=== PATIENT | male | born 1975 | race Caucasian/White ===

== ENCOUNTER 2021-04-25 13:06 | Observation (INO) | payer OTHER ==
[2021-04-25] MEDS ORDERED: DIPHENHYDRAMINE 25 MG TAB/CAP PO PRN (13:33)
[2021-04-25] MEDS ORDERED: LOPERAMIDE HCL 2 MG CAPSULE PO PRN (13:33)
[2021-04-25] MEDS ORDERED: ONDANSETRON 4 MG/2 ML VIAL IV PRN (13:33)
[2021-04-25] MEDS ORDERED: ACETAMINOPHEN 500 MG TAB PO PRN (13:33)
[2021-04-25] MEDS ORDERED: POLYETHYL GLY 3350 17 GM/DOSE PO PRN (13:54)
[2021-04-25] MEDS ORDERED: CEFOXITIN SODIUM 1 GM/VIAL IVPB SCH (14:00)
--- NOTE | 2021-04-25 16:01 | RAD REPORT ---
EXAM DESCRIPTION: Nabor Nunez (2 Views)04/25/2021 3:54 pm CLINICAL HISTORY: Abdominal pain COMPARISON: None FINDINGS: The lungs appear clear of acute infiltrate. The heart is normal size IMPRESSION: No acute abnormalities displayed
[2021-04-25 16:02] LABS: Absolute Lymphocytes (CBC) 1.1 K/uL (0.7-4.9); Basophils % 0.4 % (0-1.3); Hematocrit 43.2 % (39.6-49.0); Lymphocytes % 12.7 % (15.3-44.8); MPV 9.5 fL (7.6-11.3); RBC Red Blood Cell Count 4.85 M/uL (4.33-5.43)
[2021-04-25 16:03] LABS: Protime INR 1.13
[2021-04-25 16:10] LABS: Albumin 4.3 g/dL (3.4-5.0); Bilirubin Direct 0.1 mg/dL (0-0.2); Bilirubin Total 0.6 mg/dL (0.2-1.0); Magnesium 2.3 mg/dL (1.8-2.4); Phosphorus 3.4 mg/dL (2.5-4.9); Potassium 3.7 mmol/L (3.5-5.1); Protein, Total 7.7 g/dL (6.4-8.2); Thyroid Stimulating Hormone 2.72 uIU/mL (0.360-3.740)
[2021-04-25] MEDS: NACHLORIDE 0.45% 1,000 ML IV SCH (16:10)
[2021-04-25] MEDS: CEFOXITIN/SWI 1gm 1 GM/10 ML SYR IV SCH (16:12)
[2021-04-25] MEDS ORDERED: ENOXAPARIN 40 MG/0.4 ML SQ SCH (17:00)
[2021-04-25] MEDS ORDERED: ACETAMINOPHEN 325 MG TABLET PO PRN (19:00)
[2021-04-25 19:01] LABS: Urine Appearance CLEAR (Clear); Urine Bilirubin NEGATIVE (Negative); Urine Blood NEGATIVE (Negative); Urine Color YELLOW (Yellow); Urine Glucose NEGATIVE (Negative); Urine Protein NEGATIVE (Negative); Urine Specific Gravity 1.015 (1.005-1.030); Urine Urobilinogen 0.2 mg/dL (0.2-1.0)
[2021-04-25 20:07] LABS: Urine Bacteria <20 /HPF (NONE SEEN); Urine RBC NONE SEEN /HPF (NONE SEEN)
[2021-04-25] MEDS: HYDROMORPHONE HCL 1 MG/ML INJ IV PRN (22:40)
[2021-04-26] MEDS: CEFOXITIN/SWI 1gm 1 GM/10 ML SYR IV SCH ×3 (01:11→16:45)
[2021-04-26] MEDS ORDERED: CEFOXITIN/SWI 1gm 1 GM/10 ML SYR ONE ×2 (01:26→12:41)
[2021-04-26 04:25] LABS: Absolute Lymphocytes (CBC) 1.4 K/uL (0.7-4.9); Basophils % 0.5 % (0-1.3); MPV 9.4 fL (7.6-11.3); RBC Red Blood Cell Count 4.64 M/uL (4.33-5.43)
[2021-04-26 04:44] LABS: Magnesium 2.3 mg/dL (1.8-2.4); Potassium 4.1 mmol/L (3.5-5.1)
[2021-04-26] MEDS: HYDROMORPHONE HCL 1 MG/ML INJ IV PRN (06:27)
[2021-04-26] MEDS: NACHLORIDE 0.45% 1,000 ML IV SCH ×2 (06:40→16:45)
--- NOTE | 2021-04-26 10:17 | RAD REPORT ---
EXAM DESCRIPTION: MRICholangiogram04/26/2021 10:03 am CLINICAL HISTORY: Abdominal pain COMPARISON: April 25, 2021 ultrasound TECHNIQUE: Magnetic resonance cholangiogram was performed.3D MIP reconstruction performed FINDINGS: Multiple gallstones. Mild gallbladder wall thickening. The biliary tree is normal caliber without a filling defect. Pancreatic duct is normal caliber IMPRESSION: Cholelithiasis. Thickened gallbladder wall probably indicating cholecystitis
--- NOTE | 2021-04-26 11:08 | RAD REPORT ---
EXAM DESCRIPTION: US - Abdomen Exam Complete - 04/25/2021 10:24 pm CLINICAL HISTORY: PAIN IN ABDOMEN. COMPARISON: None. TECHNIQUE: Real-time ultrasound of the abdomen with Doppler flow imaging was obtained. FINDINGS: Liver: Normal parenchymal echogenicity. Mildly enlarged, measuring 18.5 cm in length. Ther e is no mass or cyst identified in the liver. The main portal vein is patent with normal hepatopedal flow. Gallbladder: Numerous small calcified gallstones. Mild gallbladder wall thickening, measuring up to 0 .6 cm. No focal tenderness over the gallbladder. Bile ducts: No dilatation of the intrahepatic bile ducts. The common bile duct measures 0.8 cm in peter meter at the eugenie hepatis. Right kidney: Poor visualization of the lower pole due to bowel gas. Normal size and configuration, m easuring 11 cm in length. Normal echotexture without focal lesion identified. No hydronephrosis or ca lculi identified. Left kidney: Mildly enlarged, measuring 13.9 cm in length. Normal echotexture without focal lesion id entified. No hydronephrosis or calculi identified. Spleen: Mildly enlarged, measuring 13.9 cm in length. Pancreas: The visualized portions of the pancreas are within normal limits. IMPRESSION: 1. Cholelithiasis with mild gallbladder wall thickening. Correlate for acute cholecyst itis. 2. Mildly prominent common bile duct. Consider correlation with LFTs, and MRCP/ERCP if necessary. 3. Mild hepatosplenomegaly. Nonspecific mild left nephromegaly. Electronically signed by: Samreen Partida MD 04/26/2021 12:10 AM CDT Due to temporary technical issues with the PACS/Fluency reporting system, reports are being signed by the in house radiologists without review as a courtesy to insure prompt reporting. The interpreting radiologist is fully responsible for the content of the report.
[2021-04-26] MEDS ORDERED: Ringers Lactate 1,000 ML IV ONE (11:38)
[2021-04-26] MEDS ORDERED: propofoL 200 MG/20 ML VIAL IV ONE (12:32)
[2021-04-26] MEDS ORDERED: LIDOCAINE 2% MPF 5 ML VIAL ONE (12:33)
[2021-04-26] MEDS ORDERED: MIDAZOLAM HCL 2 MG/2 ML INJ ONE (12:33)
[2021-04-26] MEDS ORDERED: dexAMETHasone 10 MG/ML VIAL ONE (12:33)
[2021-04-26] MEDS ORDERED: FENTANYL CITR 100 MCG/2 ML ONE (12:33)
[2021-04-26] MEDS ORDERED: ONDANSETRON 4 MG/2 ML VIAL ONE (12:36)
--- NOTE | 2021-04-26 12:51 | PREOPCON ---
Date of Consultation: 04/25/2021 Reason: Abdominal pain. History Of Present Illness: The patient is a 46-year-old gentleman comes in with 2-day history of ri ght upper quadrant pain, postprandial in nature. This was started Saturday evening and went to Dr. Storm's office. He was very tender in the right upper quadrant and was admitted for evaluation and work up. He had an ultrasound done which showed cholelithiasis with mild gallbladder wall thickening. Mi ldly prominent common bile duct. Had an MRCP done which did not show any stones in the duct and the caliber of the bile duct was normal on the MRCP and his LFTs are within normal limits. He denies any nausea, vomiting. No diarrhea or constipation. No blood in the stool. No dysuria or hematuria. D oes have some bloating. No belching or heart burn. No sore throat, runny nose, cough, headaches, or dizziness. No chest pain. No fever or chills. Review of Systems: Otherwise unremarkable. Past Medical History: Significant for hypertension. Past Surgical History: Knee surgery and back surgery. Allergies: NONE. Social History: He denies smoking or drinking. Family History: Noncontributory. Physical Examination: Vital signs: Stable. He is afebrile. General: He is awake, alert, and oriented x3. Head and neck: Cranial nerves 2 through 12 grossly within normal limits. No neck masses. No JVD. Throat clear. Neck is supple. Chest: Clear. Heart: S1, S2. Abdomen: Soft, nondistended. Positive right upper quadrant tenderness with rebound. No rigidity or guarding. Extremities: Adequately perfused. Nontender. Neuro: Nonfocal. Diagnostic Data: As per HPI. Assessment: Acute cholecystitis and cholelithiasis. Plan: Admit, n.p.o., IV fluid, IV antibiotic, to the OR for lap choly, possible open. The patient u nderstands the risks, benefits, and alternatives and agrees to procedure. /MODL Voice ID: [id number] Report ID: [id number]
[2021-04-26] MEDS ORDERED: ROCURONIUM 50 MG/5 ML VIAL IV ONE (12:53)
--- NOTE | 2021-04-26 13:17 | P.OP ---
Band Sawmill Operator: Odilia RICHMOND Preoperative diagnosis: Acute Cholecystitis and Cholelithiasis Postoperative diagnosis: Same Primary procedure: Lap Brittney Anesthesia: General Estimated blood loss: min Specimen: GB Findings: as above Complications: None Transferred to: Recovery Room Condition: Good
[2021-04-26] MEDS ORDERED: KETOROLAC 30 MG/ML INJ ONE (13:33)
[2021-04-26] MEDS ORDERED: MEPERIDINE HCL 25 MG/ML SYR ONE (14:08)
[2021-04-26] MEDS ORDERED: LABETALOL 20 MG/4ML SYRINGE IV ONE (14:16)
--- NOTE | 2021-04-26 14:24 | OP ---
Date of Procedure: 04/26/2021 Surgeon: Jono Mitchell MD [place] Dehydrator Operator: BASILIO Clinton Preoperative Diagnosis: Acute cholecystitis with cholelithiasis. Postoperative Diagnosis: Acute cholecystitis with cholelithiasis. Procedure: Laparoscopic cholecystectomy. Estimated Blood Loss: Minimal. Specimen: Gallbladder. Finding: As above. Anesthesia: General. Complications: None. Disposition: The patient tolerated the procedure in stable condition and taken to Recovery in good g eneral condition. Procedure In Detail: The patient was brought to the OR and placed in supine position. General anest hesia begun. The patient was prepped and draped in usual sterile fashion. Marcaine 0.5% was infiltr ated locally. A 15-blade was used to make a 1 cm supraumbilical midline incision. Subcutaneous tiss ue divided. Fascia identified and divided. A #1 Vicryl stay suture was placed. Peritoneal cavity w as entered with a sharp and blunt dissection. A 12 mm trocar was placed into the peritoneal cavity u nder direct vision. Pneumoperitoneum was established. Then, three 5 mm trocars were placed, 1 in th e epigastrium just to the right of midline and 2 in the right subcostal region. Laparoscopy revealed a distended gallbladder, which was aspirated of bile consistent with acute cholecystitis. Fundus re tracted superiorly. Infundibulum was identified and retracted inferolaterally. Cystic duct and cyst ic artery were clearly identified with blunt dissection. Clips were placed. Both structures were di vided. Cautery was used to remove the gallbladder from the liver bed. Bleeding on the liver bed was controlled with cautery. Gallbladder was retrieved through the umbilicus via an EndoCatch bag. Rig ht upper quadrant was irrigated. Effluent was clear. No evidence of bleeding or bile leakage apprec iated. Subsequently, all trocars were removed under direct vision. Stay sutures were tied to each o ther to reapproximate the fascial defect. Wound irrigated. Bleeding controlled with cautery and 3-0 chromic used to approximate subcutaneous tissue and mechelle used to close the skin. Sterile dressin g was applied. The patient was awakened and taken to recovery in good general condition. /MODL Voice ID: [id number] Report ID: [id number]
[2021-04-26] MEDS ORDERED: MORPHINE 4 MG/ML SYR ONE (14:28)
--- NOTE | 2021-04-26 16:35 | EKG ---
Test Date: 2021-04-25 Test Time: 14:15:48 Injection Molding Process Technician: ALYSON MEASUREMENT RESULTS: Intervals: Rate: 72 TX: 160 QRSD: 94 QT: 348 QTc: 381 [place]: P: 53 TX: 160 QRS: 77 T: 70 INTERPRETIVE STATEMENTS: Normal sinus rhythm Normal ECG No previous ECG available for comparison Electronically Signed On 04-26-21 16:33:10 CDT by Vin Roque
[2021-04-26] MEDS: HYDROCODONE/APAP 7.5/325 MG TAB PO PRN ×2 (16:59→21:37)
[2021-04-26 18:15] VITALS: BMI 26.1
--- NOTE | 2021-04-26 21:21 | P.PN ---
Subjective Date of Service: 04/26/21 Chief Complaint: ABDOMEN PAIN Subjective: Improving MR. RUIZ HAS ACUTE CHOLECYSTITIS. GB WAS REMOVED AFTER MAKING SURE MRCP WAS NORMAL FOR BILE DUCT. DR. SARABIA CALLED AND WE DISCUSSED DC PLAN IN AM. HE HAD A VERY ACUTE GB INFECTION. Physical Examination - Vital Signs Temperature: 98.3 F Blood Pressure: 133/65 Pulse: 86 Respirations: 18 Pulse Ox (%): 96 - Physical Exam General: Mild distress, Moderate distress HEENT: Atraumatic, PERRLA, EOMI Neck: Supple, JVD not distended Respiratory: Clear to auscultation bilaterally, Normal air movement Cardiovascular: Regular rate/rhythm, Normal S1 S2 Gastrointestinal: Tenderness (RUQ , BEFORE SURGERY, MODERATE THIS AM.) Musculoskeletal: No tenderness Integumentary: No rashes Neurological: Normal speech, Normal tone, Normal affect Lymphatics: No axilla or inguinal lymphadenopathy - Studies Laboratory Data (last 24 hrs) 04/26/21 03:46: Sodium 141, Potassium 4.1, BUN 10, Creatinine 1.02, Glucose 90, Magnesium 2.3 04/26/21 03:46: WBC 7.90, Hgb 14.1, Hct 41.0, Plt Count 193 Medications List Reviewed: Yes Assessment And Plan - Current Problems (Diagnosis) (1) Acute calculous cholecystitis Current Visit: Yes Status: Acute Plan: SURGERY DONE TODAY. PATIENT IS HEALTHY WITHOUT ANY MEDICAL ISSUES.
[2021-04-27] MEDS: CEFOXITIN/SWI 1gm 1 GM/10 ML SYR IV SCH ×2 (00:56→08:38)
[2021-04-27] MEDS: HYDROCODONE/APAP 7.5/325 MG TAB PO PRN ×2 (02:16→08:37)
[2021-04-27] MEDS: NACHLORIDE 0.45% 1,000 ML IV SCH ×2 (04:06→04:28)
[2021-04-27 04:42] LABS: Absolute Lymphocytes (CBC) 0.7 K/uL (0.7-4.9); Hematocrit 36.5 % (39.6-49.0); MPV 9.3 fL (7.6-11.3); RBC Red Blood Cell Count 4.18 M/uL (4.33-5.43)
[2021-04-27 06:21] VITALS: TEMP 97.8
[2021-04-27 08:54] LABS: Blood Morphology Comment NOT SEEN (NOT SEEN); Platelet Estimate ADEQ
[2021-04-27 08:57] VITALS: O2SAT 99
[2021-04-27 09:34] VITALS: BP 157/84
--- NOTE | 2021-04-27 12:42 | PN ---
Date of Progress Note: 04/27/2021 Subjective: The patient awake, alert, tolerating diet. Complaining of some shoulder pain. No nause a or vomiting. Objective: Vital Signs: Stable, afebrile. Abdomen: Benign. Laboratory Data: Reviewed. Assessment: Laparoscopic cholecystectomy. Recommendations: The patient cleared from Surgery for discharge. Discharge Instructions given. Fol low up with me in 1 week. Antibiotics as ordered. /MODL Voice ID: [id number] Report ID: [id number]
--- NOTE | 2021-04-27 21:16 | P.DS ---
Admission Date: 04/25/21 Discharge Date: 04/27/21 Disposition: ROUTINE DISCHARGE Discharge Condition: GOOD Reason for Admission: ABDOMEN PAIN - Problems (1) Acute calculous cholecystitis Status: Acute Hospital Course: SHAJI HAD CHOLECYSTECTOMY, HE IS DOING GOOD. HE HAS SOME SCAPULAR PAIN FROM IRRITATION OF DIAPHRAGM. HE IS STABLE FOR DISCHARGE. HE HAS MILD HEPATOSPLENOMEGALY AND NEPHROMEGALY. FIRST TWOC CAN BE FROM HEAVY DRINLKING FOR 20 YEARS. HE HAS NOT DRANK FOR 2 YEARS AT LEAST. HE IS STABLE TO BE DISCHARGE AND HE WILL FU IN ONE WEEK. WE WILL DO FOLLOW UP SONOGRAM IN 3-6 MONTHS ABOUT. Vital Signs/Physical Exam: Temp Pulse Resp BP Pulse Ox 97.8 F 67 18 157/84 H 95 04/27/21 08:00 04/27/21 08:00 04/27/21 08:37 04/27/21 08:00 04/27/21 08:37 Laboratory Data at Discharge: WBC 9.50 K/uL (4.3-10.9) D 04/27/21 03:49 Hgb 12.9 g/dL (13.6-17.9) L 04/27/21 03:49 Hct 36.5 % (39.6-49.0) L 04/27/21 03:49 Plt Count 220 K/uL (152-406) 04/27/21 03:49 PT 13.0 SECONDS (9.5-12.5) H 04/25/21 15:15 INR 1.13 04/25/21 15:15 APTT 34.8 SECONDS (24.3-36.9) 04/25/21 15:15 Sodium 141 mmol/L (136-145) 04/26/21 03:46 Potassium 4.1 mmol/L (3.5-5.1) 04/26/21 03:46 BUN 10 mg/dL (7-18) 04/26/21 03:46 Creatinine 1.02 mg/dL (0.55-1.3) 04/26/21 03:46 Glucose 90 mg/dL (74-106) 04/26/21 03:46 Phosphorus 3.4 mg/dL (2.5-4.9) 04/25/21 15:15 Magnesium 2.3 mg/dL (1.8-2.4) 04/26/21 03:46 Total Bilirubin 0.6 mg/dL (0.2-1.0) 04/25/21 15:15 AST 12 U/L (15-37) L 04/25/21 15:15 ALT 22 U/L (12-78) 04/25/21 15:15 Alkaline Phosphatase 60 U/L (45-117) 04/25/21 15:15 Home Medications: Ciprofloxacin HCl [Cipro 500 MG Tablet] 500 mg PO BID 10 Days #20 tab 04/27/21 Codeine/APAP [Tylenol W/Codeine #3 tab] 1 tab PO Q4HP PRN #40 tab 04/27/21 metroNIDAZOLE [Flagyl] 500 mg PO Q8H 10 Days #30 tablet 04/27/21 New Medications: Ciprofloxacin HCl [Cipro 500 MG Tablet] 500 mg PO BID 10 Days #20 tab metroNIDAZOLE [Flagyl] 500 mg PO Q8H 10 Days #30 tablet Codeine/APAP [Tylenol W/Codeine #3 tab] 1 tab PO Q4HP PRN #40 tab PRN Reason: Pain Scale 5-7 (Moderate) Physician Discharge Instructions: May shower in am Keep wound clean and dry Diet: Regular Activity: No lifting more than 10 lbs Followup: Chuckie Georges MD [Primary Care Provider] - Jono Mitchell MD [ACTIVE - CAN ADMIT] - 1-2 Weeks (call to schedule an appointment )
[2021-04-30 15:06] LABS: Vitamin D 1,25-Dihydroxy Total 46 pg/mL (18-72); Vitamin D,1,25-OH2, D2 8 pg/mL
== END 2021-04-27 09:45 | disposition home or self-care (01) ==
LOC: 2ND 13:06 → 4TH 13:35 → 2ND 13:37
PROVIDERS: ADMIT Internal Medicine; ATTEND Internal Medicine
PROC: 0FT44ZZ Resection of Gallbladder, Percutaneous Endoscopic Approach (ICD-10-PCS; principal; 2021-04-26 11:30)
DX: K80.12 Calculus of gallbladder with acute and chronic cholecystitis without obstruction (principal); I10 Essential (primary) hypertension; M25.519 Pain in unspecified shoulder; R16.2 Hepatomegaly with splenomegaly, not elsewhere classified
CPT/HCPCS: 93005; 87040 ×2; 85025 ×3; 81001; 80048 ×2; 36415 ×2; 83735 ×2; 84100; 85610; 80076; 88304; 85730; 82652; 84443; 82607; 71046; 74181; 76700; 94010; 47562; J2704; J1650; J2250; J3010; J1100; J2175; J1170 ×2; G0378 ×4; J7120; J2405; G0379